=== PATIENT | female | born 1965 | race Caucasian/White ===

== ENCOUNTER 2017-05-26 01:42 | Emergency (ER) | payer OTHER ==
[~2017-05-26] VITALS: Ht 172.7 cm; Wt 128.8 kg
[2017-05-26 04:03] LABS: Basophils # (auto) 0.1 uL; Basophils % (auto) 1.1 % (0.0-2.0); Eosinophils # (auto) 0.3 uL; Eosinophils % (auto) 3.3 % (0.0-7.0); Hemoglobin 16.4 g/dL (12.2-16.2); Lymphocytes # (auto) 2.7 uL; Lymphocytes % (auto) 29.8 % (10.0-50.0); Mean Corpuscular Hemoglobin 30.7 pg (28.0-32.0); Mean Corpuscular Hgb Conc. 34.3 g/dL (32.0-36.0); Mean Corpuscular Volume 89.7 fL (80.0-100.0); Mean Platelet Volume 8.3 fL (6.9-10.8); Monocytes # (auto) 0.7 uL; Monocytes % (auto) 7.9 % (0.0-12.0); Neutrophils # (auto) 5.2 uL; Neutrophils % (auto) 57.9 % (37.0-80.0); Platelet Count (auto) 271 10^3/uL (140-450)
[2017-05-26 04:25] LABS: Anion Gap 8 (5-15); Blood Urea Nitrogen 19 mg/dL (7-18); Calcium 10.1 mg/dL (8.5-10.1); Carbon Dioxide 29 mmol/L (21-32); Chloride 104 mmol/L (98-107); Glucose 80 mg/dL (74-106); Potassium 3.2 mmol/L (3.5-5.1); Sodium 141 mmol/L (136-145)
[2017-05-26 04:28] LABS: Aspartate Aminotransferase 18 U/L (15-37); BUN/Creatinine Ratio 14.8; GFR African American 57 mL/min; GFR Non-African American 47 mL/min
[2017-05-26 04:40] LABS: Alkaline Phosphatase 96 U/L (45-117); Bilirubin, Total 0.8 mg/dL (0.2-1.0); Total Protein 7.8 g/dL (6.4-8.2)
[2017-05-26 05:02] LABS: B-Type Natriuretic Peptide < 5.0 pg/mL (0-100); Temperature: 21.8 C (20.0-25.0)
[2017-05-26] MEDS ORDERED: POTASSIUM CHL 20 Meq TABLET PO ONE (05:30)
[2017-05-26] MEDS ORDERED: KETOROLAC TROMETH 30 MG/ML 1ML VIAL IV ONE (06:45)
[2017-05-26] MEDS ORDERED: METOCLOPRAMIDE HCL 5MG/ml INJ 2ml VIAL IV ONE (06:45)
[2017-05-26] MEDS: SODIUM CHLORIDE 0.9% 1,000 ML IVB ONE ×2 (07:04→07:06)
[2017-05-26] MEDS ORDERED: LEVOTHYROXINE SODIUM 100 MCG/5 ML INJ IV ONE (08:30)
[2017-05-26] MEDS ORDERED: THYROID 60 MG TAB PO ONE (08:30)
[2017-05-26 09:40] LABS: Urine RBC None Seen /hpf (0 - 4)
[2017-05-26 09:54] LABS: Urine Bilirubin Negative (Negative); Urine Blood Negative /uL (Negative); Urine Color Yellow (Yellow); Urine Glucose Normal (Normal); Urine Ketone Negative (Negative); Urine Mucus FEW (None Seen); Urine Nitrite Negative (Negative); Urine Squamous Epithelial Cell FEW /hpf (<5); Urine Urobilinogen Normal (Negative); Urine pH 5.5 (5.0-8.0)
[2017-05-26 11:00] VITALS: BP 143/89
== END 2017-05-26 11:08 | disposition home or self-care (01) ==
LOC: ER 01:42
DX: R07.9 Chest pain, unspecified (principal); E87.6 Hypokalemia; E03.9 Hypothyroidism, unspecified; R06.02 Shortness of breath; Z90.710 Acquired absence of both cervix and uterus; Z88.2 Allergy status to sulfonamides; Z88.6 Allergy status to analgesic agent
CPT/HCPCS: 36415; 71010; 80053; 81001; 83880; 84443; 84484; 85025; 85379; 85610; 85730; 93005; 96361; 96374; 96375; 99285; J1885; J2765; J3490; J7030